=== PATIENT | female | born 1960 | race Caucasian/White ===

== ENCOUNTER → 2016-09-02 | Outpatient (REF) | payer OTHER ==
[2016-09-02 09:07] LABS: BASOPHILS % (AUTO) 0 % (0-2); EOSINOPHILS # (AUTO) 0.2 10^3uL; EOSINOPHILS % (AUTO) 3 % (0-4); LYMPHOCYTES # (AUTO) 1.4 X10^3; MEAN CORPUSCULAR HEMOGLOBIN 29.9 PG (26.0-34.0); MEAN CORPUSCULAR HGB CONC 33.2 g/dL (31.0-37.0); MEAN CORPUSCULAR VOLUME 90 FL (80-100); MEAN PLATELET VOLUME 10.4 FL (6.0-9.5); MONOCYTES # (AUTO) 0.4 X10^3; MONOCYTES % (AUTO) 7 % (3-11); NEUTROPHILS # (AUTO) 3.2 X10^3; NEUTROPHILS % (AUTO) 62 % (51-67); PLATELET COUNT 166 10^3uL (150-450); WHITE BLOOD COUNT 5.19 10^3uL (4.0-11.0)
[2016-09-02 09:45] LABS: ERYTHROCYTE SEDIMENTATION RT* 11 mm/hr (0-23)
[2016-09-02 10:16] LABS: ALKALINE PHOSPHATASE 95 U/L (38-126); BUN/CREATININE RATIO 25 (10-20); TOTAL PROTEIN 7.1 g/dL (6.4-8.5)
== END ==
LOC: LAB 08:44
PROVIDERS: ATTEND Nurse Practitioner Family
DX: Z00.00 Encounter for general adult medical examination without abnormal findings (principal); E89.0 Postprocedural hypothyroidism; M79.604 Pain in right leg
CPT/HCPCS: 80053; 80061; 84443; 85025; 85652; 86140

== ENCOUNTER → 2016-09-02 | Outpatient (CLI) | payer OTHER | LOC: RAD 08:53 | PROVIDERS: ATTEND Nurse Practitioner Family | DX: M79.604 Pain in right leg (principal) | CPT/HCPCS: 73590 ==

== ENCOUNTER → 2016-09-13 | Outpatient (CLI) | payer OTHER ==
[~2016-09-13] MED LIST: ESTR1TAB14 PO
--- NOTE | 2016-09-13 09:21 | Diagnostic Imaging Report ---
PROCEDURE: MRI right lower extremity without contrast. TECHNIQUE: Multiplanar, multisequence non contrast-enhanced MRI of the right lower extremity was accomplished. INDICATION: Right lower leg pain EXAMINATION: Right lower extremity MRI dated 09-13-2016 FINDINGS: Multiplanar multisequence MRI of the right lower extremity. Markers placed along the lateral aspect of the mid right lower extremity. The underlying soft tissues are unremarkable. The osseous structures throughout the visualized extremities bilaterally are normal in appearance. There are no acute osseous abnormalities with no measurable lesions within the soft tissues. Several varices noted within the posterior soft tissues of the right calf, greater than on the left. IMPRESSION: 1. No acute abnormalities appreciated. Specifically, no abnormality seen at the site of marker placement. 2. Varices noted bilaterally, right greater than left. Dictated by: Dictated on workstation # [id number]
== END ==
LOC: RAD 07:35
PROVIDERS: ATTEND Nurse Practitioner Family
DX: M79.604 Pain in right leg (principal)
CPT/HCPCS: 73718